=== PATIENT | male | born 2000 | race African-American/Black ===

== ENCOUNTER 2021-11-22 16:21 | Emergency (ER) | payer MEDICAID ==
[~2021-11-22] VITALS: Ht 188 cm; Wt 77.0 kg
[2021-11-22 16:38] VITALS: BP 126/85
[2021-11-22] MEDS ORDERED: BO1 TP (17:46)
== END 2021-11-22 18:22 | disposition home or self-care (01) ==
LOC: ER 16:21
DX: S00.86XA Insect bite (nonvenomous) of other part of head, initial encounter (principal); W57.XXXA Bitten or stung by nonvenomous insect and other nonvenomous arthropods, initial encounter; Y93.89 Activity, other specified; Y92.89 Other specified places as the place of occurrence of the external cause; Y99.8 Other external cause status; Z98.890 Other specified postprocedural states
CPT/HCPCS: 99282